=== PATIENT | male | born 1980 | race Caucasian/White ===

== ENCOUNTER 2017-08-25 22:18 | Emergency (ER) | payer OTHER ==
[~2017-08-25] VITALS: Wt 76.3 kg
[~2017-08-25 22:18] MED LIST: Immodium; NO HOME MEDICATIONS; TAMIFLU 75MG75 MG PO; TUSS PO
[2017-08-25 22:26] VITALS: BP 134/80
[2017-08-26] MEDS ORDERED: DOXYCYCLINE 10100 MG PO (01:52)
[2017-08-26] MEDS ORDERED: PHENERGAN W/CO120 M1 PO (02:45)
[2017-08-26 02:56] VITALS: PULSE 97; TEMP 97.7
== END 2017-08-26 02:59 | disposition home or self-care (01) ==
LOC: COL.ER 22:18
DX: J06.9 Acute upper respiratory infection, unspecified (principal); Z88.0 Allergy status to penicillin
CPT/HCPCS: J7030

== ENCOUNTER 2021-12-17 10:52 | Emergency (ER) | payer OTHER ==
[~2021-12-17] VITALS: Ht 177.8 cm; Wt 77.3 kg
[~2021-12-17 10:52] MED LIST changes: +DOXYCYCLINE 10100 MG PO; +PHENERGAN W/CO120 M1 PO
[2021-12-17 10:57] VITALS: TEMP 99.6
[2021-12-17 13:25] VITALS: BP 126/67; PULSE 78
== END 2021-12-17 13:27 | disposition home or self-care (01) ==
LOC: COL.ER 10:52
DX: B34.8 Other viral infections of unspecified site (principal)
CPT/HCPCS: J2405